=== PATIENT | male | born 1955 | race Caucasian/White ===

== ENCOUNTER 2019-10-30 20:50 | Emergency (ER) | payer MEDICARE, OTHER ==
[~2019-10-30] VITALS: Ht 182.9 cm; Wt 102.1 kg
[2019-10-30] MEDS ORDERED: Prednisone20 MG PO (22:30)
[2019-10-30] MEDS ORDERED: LIDO700A20 TOP (22:30)
== END 2019-10-30 23:05 | disposition home or self-care (01) ==
LOC: ER 20:50
DX: M54.40 Lumbago with sciatica, unspecified side (principal); Z98.1 Arthrodesis status
CPT/HCPCS: 96374; 96375; 99283-25; A9270; J1885; J3010